=== PATIENT | female | born 1965 | race African-American/Black ===

== ENCOUNTER 2017-06-01 10:29 | Emergency (ER) | payer OTHER ==
[~2017-06-01 10:29] MED LIST: BENADRYL12.5 M1 PO; FERROUS SULFATE PO; NICOTINE TRANSD21 MG EXT
== END 2017-06-01 12:12 | disposition home or self-care (01) ==
LOC: CED 10:29 → CFTX 10:29
DX: S39.012A Strain of muscle, fascia and tendon of lower back, initial encounter (principal); I10 Essential (primary) hypertension; J45.909 Unspecified asthma, uncomplicated; Z88.2 Allergy status to sulfonamides; F17.210 Nicotine dependence, cigarettes, uncomplicated
CPT/HCPCS: 96372; 99283; J1885

== ENCOUNTER 2017-06-05 13:39 | Emergency (ER) | payer OTHER ==
--- NOTE | ~2017-06-05 | CR181 ---
[facility] A Service of [facility] & [facility] RADIOLOGY TEXT RESULTS PATIENT: CLIFF BELL LOCATION: [place] : [birth year] UNIT #: [id number] AGE: [address]: Sindhu De Los Santos APRN SEX: F ORDER DR: [id number] [facility] [address] [place], [place] [address] [id number] E MR#: [id number] Acc #: [id number] NAME: CLIFF BELL : 1965 SEX: F STUDY DATE/TIME: 06/05/2017 14:43 UNIT: [facility] ROOM: STUDY DESCRIPTION: CR Lumbar Spine 2 or 3 Views Attending Physician: Sindhu De Los Santos A.P.R.N. Ordering Physician: Ed Miguel Angel Andersen M.D. Primary Care Physician: Toro Perez M.D. MEDICAL IMAGING REPORT This report is preliminary unless electronic signature is present EXAM Lumbar spine series. HISTORY Low back pain for the past 2 days. TECHNIQUE Three views of the lumbar spine were obtained. FINDINGS There is a small anterior osteophyte at L4-5. There are 6 lumbar-type vertebrae. Mild disc space narrowing with a small osteophyte formation is seen at the L5-6 level. No fractures or pars defects are seen. No acute bony abnormalities are noted. IMPRESSION Mild degenerative disc disease L4-5 and L5-6. No acute findings. Dictated by... Bigg Lr M.D. THIS IS AN ELECTRONICALLY VERIFIED REPORT Bigg Lr M.D. at 06/06/2017 9:36 AM ERINN/ann TD: 06/05/2017 19:56 JOB #: [id number] MEDICAL IMAGING REPORT Page 1 of 1 COPY
== END 2017-06-05 15:50 | disposition home or self-care (01) ==
LOC: CED 13:39 → CFTX 13:39
DX: S33.5XXA Sprain of ligaments of lumbar spine, initial encounter (principal); I10 Essential (primary) hypertension; J45.909 Unspecified asthma, uncomplicated; F17.210 Nicotine dependence, cigarettes, uncomplicated; X58.XXXA Exposure to other specified factors, initial encounter
CPT/HCPCS: 72100; 96372; 99283; J1885

== ENCOUNTER 2017-06-25 10:30 | Emergency (ER) | payer OTHER ==
[~2017-06-25] VITALS: Ht 167.6 cm; Wt 108.9 kg
== END 2017-06-25 11:35 | disposition home or self-care (01) ==
LOC: CFTX 10:30 → CED 10:30 → CFTX 11:32
DX: M54.5 Low back pain (principal); I10 Essential (primary) hypertension; Z88.2 Allergy status to sulfonamides; Z90.710 Acquired absence of both cervix and uterus; F17.210 Nicotine dependence, cigarettes, uncomplicated
CPT/HCPCS: 96372; 99283; J1885

== ENCOUNTER 2017-07-06 10:39 | Emergency (ER) | payer OTHER ==
[~2017-07-06] VITALS: Ht 167.6 cm; Wt 115.7 kg
== END 2017-07-06 11:30 | disposition home or self-care (01) ==
LOC: CFTX 10:39 → CED 10:39 → CFTX 11:20
DX: G89.29 Other chronic pain (principal); M54.5 Low back pain; J45.909 Unspecified asthma, uncomplicated; I10 Essential (primary) hypertension; F17.200 Nicotine dependence, unspecified, uncomplicated; Z88.2 Allergy status to sulfonamides
CPT/HCPCS: 96372; 99283; J1885